=== PATIENT | female | born 1995 | race African-American/Black ===

== ENCOUNTER 2017-02-18 00:06 | Emergency (ER) | payer OTHER ==
[~2017-02-18] VITALS: Ht 157.5 cm; Wt 64.0 kg
[2017-02-18 00:07] VITALS: TEMP 36.8; Ht 157.5 cm; Wt 64.0 kg
[2017-02-18] MEDS ORDERED: TROLAMINE SALICYLATE 10% CRM 255 APPLN/85 GM TUBE EXT STA (00:29)
[2017-02-18 01:06] VITALS: BP 125/94; PULSE 90; O2SAT 99
--- NOTE | 2017-02-18 03:16 | EMERGENCY ROOM VISIT NOTE ---
History First contact with patient: 00:15 Chief Complaint: BACK PAIN Stated Complaint: CHRONIC BACK PAIN History of Present Illness The patient is a 21 year old female who presents to the Emergency Room with complaints of mid upper back pain for the past few days has a history of interim back pain throughout the years. She describes the pain as aching, ranging in severity 5 out of 10 worse with movement and better with rest. It does not radiate. She's never seen a back specialist. She states she's had x- rays and CTs in her back before which were all unremarkable. Patient states her backpack is quite heavy. Patient denies fall, trauma, chest pain, dyspnea, abdominal pain, low back pain, radiating pain, numbness, tingling, weakness. Patient denies IV drug abuse. No fever no chills. No sinus seizure. Review of Systems See HPI for pertinent positives & negatives. A total of 10 systems reviewed and were otherwise negative. Past Medical/Surgical History Back pain Social History Smoking Status: Former Smoker Alcohol Use: none Drug Use: none Marital Status: single Occupation Status: [employer] student Current/Historical Medications No Active Prescriptions or Reported Meds Physical Exam Vital Signs Date Time Temp Pulse Resp B/P (MAP) Pulse Ox O2 Delivery O2 Flow Rate FiO2 02/18/17 01:06 90 20 125/94 99 02/18/17 00:07 36.8 104 20 125/81 99 Room Air Physical Exam VITALS: Vitals are noted on the nurse's note and reviewed by myself. Vital signs stable. GENERAL: Pleasant female, in no acute distress, nondiaphoretic, well-developed well-nourished. SKIN: Capillary reflex less than 2 seconds. HEENT: Normocephalic. PERRLA. EOMI. Nares patent. Mucous membranes moist. Neck is supple without nuchal rigidity. HEART: Regular rate and rhythm without murmurs gallops or rubs. LUNGS: Clear to auscultation bilaterally without wheezes, rales or rhonchi. No retractions or accessory muscle use. ABDOMEN: Positive bowel sounds x 4. Normal tympanic percussion. Soft, nontender, without masses or organomegaly. Do sign negative. No guarding or rebound tenderness. MUSCULOSKELETAL: No gross musculoskeletal defects. No thoracic or lumbar tenderness on exam. Thoracic paraspinal muscles and latissimus dorsi muscles tender to palpation. NEURO: Patient was alert and oriented to person place and time. Normal sensation to light and sharp touch. No focal neurological deficits. Medical Decision & Procedures Medications Administered Medications (Trade) Dose Ordered Sig/Derick Route Start Time Stop Time Status Last Admin Dose Admin Trolamine Salicylate (Myoflex Cream) 1 appln NOW STAT EXT 02/18/17 00:29 02/18/17 00:32 DC 02/18/17 01:04 1 APPLN ED Course Prior records/ancillary studies reviewed. Triage Nursing notes reviewed. Additional history obtained from friend The patient's history was concerning for back pain. Differential diagnosis: Etiologies such as musculoskeletal, disc herniation, fracture, aortic disease, metastatic disease, cord compression, discitis, infection, renal colic, gastrointestinal, acute exacerbation of chronic back pain, sciatica, cauda equina, as well as others were entertained. Physical findings: As above. No focal neurologic findings noted. ER treatment provided: Myoflex cream On reassessment the patient felt better. Diagnostics interpreted by me: Deferred This appears to be consistent with thoracic strain. Patient was advised to try anti-inflammatories and stretch the area out. She is advised if symptoms persist to follow-up with orthopedic spine or here in the ER sooner for severe pain, numbness, tingling, inability to walk, worsening signs or symptoms or as needed. Patient was neurovascularly and neurologically intact. She is afebrile. No IV drug abuse. She was ambulated without difficulties. There was no trauma. The patient's physical examination and detailed history did not reveal any red flags for back pain such as those listed in the differential diagnosis. Therefore advanced diagnostics and consultations were felt to be unwarranted. By the evaluation outlined above emergent etiologies such as fracture, aortic disease, metastatic disease, infection, renal colic, gastrointestinal, cord compression, cauda equina, as well as others were deemed relatively unlikely. The pt informed about the findings as listed above. All questions were answered and pleased with the treatment. Return instructions were outlined and the patient was discharged in stable condition. Referral: The patient was referred back to orthopedic spine and/or primary care physician for follow-up in 2 to 3 days for a recheck of the current condition. Medical Decision As above [place] Drug Monitoring Program Search Results: patient reviewed within database, no issues identified Medication Reconcilliation Current Medication List: was personally reviewed by me Blood Pressure Screening Patient's blood pressure: Normal blood pressure Impression Primary Impression: Thoracic myofascial strain Departure Information Dispostion Home / Self-Care Condition GOOD Prescriptions No Active Prescriptions or Reported Meds Referrals No Doctor, Assigned [facility] (PCP) Forms HOME CARE DOCUMENTATION FORM, School Instructions, Return To School: 1 day IMPORTANT VISIT INFORMATION Patient Instructions Back Pain - [facility] Additional Instructions Myoflex cream: Apply 3 times a day a day to the affected area for muscle pain. Ibuprofen(Motrin, Advil) may be used for fever or pain. Use 600mg every six hours as needed. Take with food. Avoid using more than 2400mg in a 24 hour period. Do not use 2400mg per day for more than three consecutive days without physician direction. Prolonged inappropriate use can lead to stomach upset or ulcers. This medication can be taken if you need to drive, work, or perform activities which may be dangerous when taking narcotic pain medication. (AND/OR) Acetaminophen(Tylenol) may be used for fever or pain. Use 1000mg every six hours as needed. Avoid using more than 3000mg in a 24 hour period. This medication can be taken if you need to drive, work, or perform activities which may be dangerous when taking narcotic pain medication. Rest and avoid heavy lifting until your symptoms resolve and then gradually return to full activity. A good rule of thumb is if it hurts your back to perform a certain activity, then it should be avoided until you are healthy again. A heating pad, warm compresses, or a hot shower may help with tight muscles and can be done several times a day as needed. Continue current medications. Return to the ER immediately for any numbness, tingling, severe pain, loss of control of your bowels or bladder, inability to walk, or as needed. Follow up with your primary care physician/orthopedics spine within 3-5 days for a recheck of your current condition. School Instructions Return To School: 1 day Problem Qualifiers Primary Impression: Thoracic myofascial strain Encounter type: initial encounter Qualified Codes: S29.019A - Strain of muscle and tendon of unspecified wall of thorax, initial encounter
== END 2017-02-18 01:07 | disposition home or self-care (01) ==
LOC: C.EDB 00:07
DX: S29.019A Strain of muscle and tendon of unspecified wall of thorax, initial encounter (principal); X58.XXXA Exposure to other specified factors, initial encounter; Z87.891 Personal history of nicotine dependence

== ENCOUNTER 2017-07-28 17:51 | Emergency (ER) | payer OTHER ==
[~2017-07-28] VITALS: Ht 157.5 cm; Wt 66.0 kg
[2017-07-28 18:03] VITALS: TEMP 36.7; Ht 157.5 cm; Wt 66.0 kg
[2017-07-28] MEDS ORDERED: ALUMINUM/MAGNESIUM SUSP 30 ML UDC PO STA (19:41)
[2017-07-28] MEDS ORDERED: ACETAMINOPHEN 500 MG TAB PO STA (19:41)
[2017-07-28 19:46] VITALS: O2SAT 97
--- NOTE | 2017-07-28 19:50 | EMERGENCY ROOM VISIT NOTE ---
History Report prepared by Mc: Ami Fisher Under the Supervision of: Dr. Greg Gaston D.O. First contact with patient: 19:37 Chief Complaint: CHEST PAIN Stated Complaint: CHEST PAINS,SOB Nursing Triage Summary: patient to Ed via triage for ongoing chest pain, states "its been on and off for two weeks, this morning it was really bad and I get short of breath with it." History of Present Illness The patient is a 21 year old female who presents to the Emergency Room with complaints of intermittent chest pain that began two mornings ago. She describes the pain as though her chest is caving inwards. She notes the discomfort is more right sided. She notes the pain is worsened when she stands up straight. She reports the pain was worse this morning, though states the pain is tolerable while here in the ED. She notes shortness of breath. She denies any cough. She took Ibuprofen, though no relief. She notes abdominal pain. Her LNMP was last week. She denies any chance of . She denies any pain or swelling in the legs. She reports chronic back pain. She denies any abdominal surgeries. She does report taking control. She denies any family history of blood clots. Source of History: patient Onset: two mornings ago Position: chest Quality: other (feels like chest is caving inwards) Timing: intermittent Associated Symptoms: + SOB, + abdominal pain, + back pain, No cough Note: She denies any pain or swelling in the legs. Review of Systems See HPI for pertinent positives & negatives. A total of 10 systems reviewed and were otherwise negative. Past Medical & Surgical Medical Problems: (1) Thoracic myofascial strain Family History No pertinent family history Social History Smoking Status: Never Smoker Alcohol Use: none Drug Use: none Marital Status: single Housing Status: lives with roommate Occupation Status: [employer] student Current/Historical Medications Scheduled Multivitamin (Multivitamin), 1 TAB PO DAILY Miscellaneous Medications Biotin (Biotin) Allergies Coded Allergies: No Known Allergies (Unverified , 07/28/17) Physical Exam Vital Signs Date Time Temp Pulse Resp B/P (MAP) Pulse Ox O2 Delivery O2 Flow Rate FiO2 07/28/17 22:24 96 122/67 98 07/28/17 21:30 81 122/67 98 Room Air 07/28/17 20:10 87 07/28/17 19:46 81 20 112/82 97 Room Air 07/28/17 19:46 97 Room Air 07/28/17 18:04 98 Room Air 07/28/17 18:03 36.7 100 20 123/78 97 Room Air Physical Exam GENERAL: Patient is awake, alert, and in no acute distress. Patient is resting comfortably and showing no signs of anxiety EYES: The conjunctivae are clear. The pupils are round and reactive. EARS, NOSE, MOUTH AND THROAT: The nose is without any evidence of any deformity. Mucous membranes are moist tongue is midline NECK: The neck is nontender and supple. RESPIRATORY: Normal respiratory effort is noted there is no evidence of wheezing rhonchi or rales CARDIOVASCULAR: Regular rate and rhythm noted there no murmurs rubs or gallops normal S1 normal S2 GASTROINTESTINAL: The abdomen is soft, nondistended. RUQ tenderness to palpation. No guarding or rigidity. PELVIS: The Pelvis is stable. No tenderness to palpation is noted. BACK: No midline tenderness or or step-off noted range of motion in flexion extension as well as rotation no signs of muscle spasm noted MUSCULOSKELETAL/EXTREMITIES: There is no evidence of gross deformity full range of motion is noted in the hips and shoulders SKIN: There is no obvious evidence of any rash. There are no petechiae, pallor or cyanosis noted. NEUROLOGIC: Patient is awake alert and oriented x3. Medical Decision & Procedures ER Provider Diagnostic Interpretation: Radiology results as stated below per my review and radiologist interpretation: CHEST ONE VIEW PORTABLE CLINICAL HISTORY: 21 years-old Female presenting with EVALUATE RESPIRATORY DISTRESS.DYSPNEA. TECHNIQUE: Portable upright AP view of the chest was obtained. COMPARISON: None. FINDINGS: Cardiomediastinal silhouette normal. Lungs and pleural spaces clear. Osseous structures normal. Upper abdomen normal. IMPRESSION: 1. No acute cardiopulmonary disease. Electronically signed by: Tho Coe M.D. 07/28/2017 8:39 PM Dictated Date/Time: 07/28/2017 8:39 PM GALLBLADDER-ABD LIMITED CLINICAL HISTORY: 21 years-old Female presenting with RUQ pain. TECHNIQUE: Real-time grayscale and limited color Doppler ultrasound imaging of the abdomen limited to the right upper quadrant was performed. COMPARISON: None. FINDINGS: Pancreas: Visualized portions of the pancreatic head and body normal. Liver: Normal echogenicity and echotexture. The liver measures 13.2 cm in maximal sagittal dimension. No sonographic evidence of hepatic mass. Main portal vein patent with normal directional flow. Biliary: No intrahepatic biliary ductal dilatation. Common bile duct measures up to 2 mm in diameter. Gallbladder: No evidence of gallstones, gallbladder wall thickening, gallbladder distention, or pericholecystic fluid or inflammatory change. Right kidney: Normal in appearance. No hydronephrosis. Ascites: None. Other: None. IMPRESSION: No cholelithiasis or biliary ductal dilatation. Electronically signed by: Tho Coe M.D. 07/28/2017 8:49 PM Dictated Date/Time: 07/28/2017 8:48 PM Laboratory Results 07/28/17 20:00 Red Blood Count 4.76, Mean Corpuscular Volume 93.3, Mean Corpuscular Hemoglobin 30.3, Mean Corpuscular Hemoglobin Concent 32.4, Mean Platelet Volume 9.7, Neutrophils (%) (Auto) 65.2, Lymphocytes (%) (Auto) 25.9, Monocytes (%) (Auto) 7.4, Eosinophils (%) (Auto) 1.0, Basophils (%) (Auto) 0.3, Neutrophils # (Auto) 7.81, Lymphocytes # (Auto) 3.10, Monocytes # (Auto) 0.89, Eosinophils # (Auto) 0.12, Basophils # (Auto) 0.03 07/28/17 20:00 Test 07/28/17 20:00 07/28/17 20:13 White Blood Count 11.97 K/uL (4.8-10.8) Red Blood Count 4.76 M/uL (4.2-5.4) Hemoglobin 14.4 g/dL (12.0-16.0) Hematocrit 44.4 % (37-47) Mean Corpuscular Volume 93.3 fL (80-100) Mean Corpuscular Hemoglobin 30.3 pg (25-34) Mean Corpuscular Hemoglobin Concent 32.4 g/dl (32-36) Platelet Count 381 K/uL (130-400) Mean Platelet Volume 9.7 fL (7.4-10.4) Neutrophils (%) (Auto) 65.2 % Lymphocytes (%) (Auto) 25.9 % Monocytes (%) (Auto) 7.4 % Eosinophils (%) (Auto) 1.0 % Basophils (%) (Auto) 0.3 % Neutrophils # (Auto) 7.81 K/uL (1.4-6.5) Lymphocytes # (Auto) 3.10 K/uL (1.2-3.4) Monocytes # (Auto) 0.89 K/uL (0.11-0.59) Eosinophils # (Auto) 0.12 K/uL (0-0.5) Basophils # (Auto) 0.03 K/uL (0-0.2) RDW Standard Deviation 47.9 fL (36.4-46.3) RDW Coefficient of Variation 14.1 % (11.5-14.5) Immature Granulocyte % (Auto) 0.2 % Immature Granulocyte # (Auto) 0.02 K/uL (0.00-0.02) Prothrombin Time 11.4 SECONDS (9.0-12.0) Prothromb Time International Ratio 1.1 (0.9-1.1) Activated Partial Thromboplast Time 25.9 SECONDS (21.0-31.0) Partial Thromboplastin Ratio 1.0 Urine Color YELLOW Urine Appearance CLOUDY (CLEAR) Urine pH 7.0 (4.5-7.5) Urine Specific [place] 1.026 (1.000-1.030) Urine Protein NEG (NEG) Urine Glucose (UA) NEG (NEG) Urine Ketones TRACE (NEG) Urine Occult Blood NEG (NEG) Urine Nitrite NEG (NEG) Urine Bilirubin NEG (NEG) Urine Urobilinogen NEG (NEG) Urine Leukocyte Esterase NEG (NEG) Urine WBC (Auto) 1-5 /hpf (0-5) Urine RBC (Auto) 0-4 /hpf (0-4) Urine Hyaline Casts (Auto) 1-5 /lpf (0-5) Urine Epithelial Cells (Auto) >30 /lpf (0-5) Urine Bacteria (Auto) NEG (NEG) Anion Gap 4.0 mmol/L (3-11) Est Creatinine Clear Calc Drug Dose 92.2 ml/min Estimated GFR () 111.9 Estimated GFR (Non- 96.6 BUN/Creatinine Ratio 11.7 (10-20) Calcium Level 8.7 mg/dl (8.5-10.1) Total Bilirubin 0.5 mg/dl (0.2-1) Aspartate Amino Transf (AST/SGOT) 22 U/L (15-37) Alanine Aminotransferase (ALT/SGPT) 17 U/L (12-78) Alkaline Phosphatase 60 U/L (45-117) Troponin I < 0.015 ng/ml (0-0.045) Total Protein 7.3 gm/dl (6.4-8.2) Albumin 3.7 gm/dl (3.4-5.0) Globulin 3.6 gm/dl (2.5-4.0) Albumin/Globulin Ratio 1.0 (0.9-2) Lipase 120 U/L (73-393) Human Chorionic Gonadotropin, Qual NEG (NEG) Bedside D-Dimer 89 ng/mlFEU (0-450) Laboratory results per my review. Medications Administered Medications (Trade) Dose Ordered Sig/Derick Route Start Time Stop Time Status Last Admin Dose Admin Acetaminophen (Tylenol Tab) 1,000 mg ONE STAT PO 07/28/17 19:41 07/28/17 19:42 DC 07/28/17 19:52 1,000 MG Al Hydroxide/Mg Hydroxide (Maalox Susp) 30 ml NOW STAT PO 07/28/17 19:41 07/28/17 19:42 DC 07/28/17 19:52 30 ML ECG Per My Interpretation Indication: chest pain Rate (beats per minute): 76 Rhythm: normal sinus Findings: no acute ischemic change, no ectopy ED Course 1939: The patient was evaluated in room C8. A complete history and physical examination were performed. 1940: Ordered Maalox 30 ml PO and Tylenol 1,000 mg PO 2134: I reassessed the patient at this time. She is feeling better and resting comfortably. I discussed the results and treatment plan with the patient. I answered all pertaining questions that she had. She expressed understanding and verbalized agreement. The patient will be discharged home. Medical Decision Prior records/ancillary studies reviewed. Triage Nursing notes reviewed. The patient's history was concerning for chest pain. Differential diagnosis: Etiologies such as cardiac ischemia, aortic dissection, pulmonary embolism, pneumonia, pneumothorax, musculoskeletal, infections, pericarditis, myocarditis , esophageal rupture, gastrointestinal, as well as others were entertained. The patient is a 21-year-old female who presented to the emergency department for an evaluation of ongoing chest discomfort. The patient was not tachycardic. The patient was not hypoxic. Her d-dimer is negative. Her EKG did not reveal any acute ischemic changes. I discussed patient's laboratory and radiographic studies with her. I also discussed the limitations of the emergency department workup for chest pain with her. She was encouraged to rest and avoid any strenuous activity. She was also encouraged to call her primary care physician in the morning to schedule a follow-up appointment. Otherwise she was encouraged to return the emergency department immediately if symptoms change worsen or the need arises. Medication Reconcilliation Current Medication List: was personally reviewed by me Blood Pressure Screening Patient's blood pressure: Normal blood pressure Impression Primary Impression: Right-sided chest pain Scribe Attestation The scribe's documentation has been prepared under my direction and personally reviewed by me in its entirety. I confirm that the note above accurately reflects all work, treatment, procedures, and medical decision making performed by me. Departure Information Dispostion Home / Self-Care Referrals [facility] (PCP) Forms HOME CARE DOCUMENTATION FORM, IMPORTANT VISIT INFORMATION, School Instructions, Work Instructions Patient Instructions ED Chest Pain Atypical Unkn Cause, My [facility] Additional Instructions Follow-up with [facility] for reevaluation. Continue to use Motrin and Tylenol for pain. Consider using Maalox or Mylanta as directed for symptomatic relief. Consider using [id number] stomach medication such as Zantac or Prilosec. Return to the emergency department immediately symptoms change worsen or the need arises.
[2017-07-28 20:22] LABS: BASO % 0.3 %; BASO ABS # 0.03 K/uL (0-0.2); EOS ABS # 0.12 K/uL (0-0.5); HEMATOCRIT 44.4 % (37-47); HEMOGLOBIN 14.4 g/dL (12.0-16.0); IG# 0.02 K/uL (0.00-0.02); LYMPH % 25.9 %; MEAN CELL VOLUME 93.3 fL (80-100); MEAN CORPUSCULAR HEMOGLOBIN 30.3 pg (25-34); MEAN CORPUSCULAR HGB CONC 32.4 g/dl (32-36); MEAN PLATELET VOLUME 9.7 fL (7.4-10.4); MONO % 7.4 %; MONO ABS # 0.89 K/uL (0.11-0.59); NEUT % 65.2 %; NEUT ABS # 7.81 K/uL (1.4-6.5); PLATELET COUNT 381 K/uL (130-400); RED CELL DISTRIBUTION WIDTH CV 14.1 % (11.5-14.5); RED CELL DISTRIBUTION WIDTH SD 47.9 fL (36.4-46.3); WHITE BLOOD COUNT 11.97 K/uL (4.8-10.8)
[2017-07-28 20:32] LABS: INR 1.1 (0.9-1.1); PTT PATIENT 25.9 SECONDS (21.0-31.0)
[2017-07-28 20:41] LABS: ALBUMIN 3.7 gm/dl (3.4-5.0); ALT/SGPT 17 U/L (12-78); BLOOD UREA NITROGEN 10 mg/dl (7-18); CALCIUM 8.7 mg/dl (8.5-10.1); CARBON DIOXIDE 27 mmol/L (21-32); CREATININE 0.86 mg/dl (0.60-1.20); GLUCOSE 80 mg/dl (70-99); POTASSIUM 4.1 mmol/L (3.5-5.1); SODIUM 138 mmol/L (136-145)
--- NOTE | 2017-07-28 20:41 | DIAGNOSTIC IMAGING REPORT ---
CHEST ONE VIEW PORTABLE CLINICAL HISTORY: 21 years-old Female presenting with EVALUATE RESPIRATORY DISTRESS.DYSPNEA. TECHNIQUE: Portable upright AP view of the chest was obtained. COMPARISON: None. FINDINGS: Cardiomediastinal silhouette normal. Lungs and pleural spaces clear. Osseous structures normal. Upper abdomen normal. IMPRESSION: 1. No acute cardiopulmonary disease. Electronically signed by: Tho Coe M.D. 07/28/2017 8:39 PM Dictated Date/Time: 07/28/2017 8:39 PM
[2017-07-28 20:46] LABS: ALKALINE PHOSPHATASE 60 U/L (45-117); AST/SGOT 22 U/L (15-37); TOTAL PROTEIN 7.3 gm/dl (6.4-8.2)
--- NOTE | 2017-07-28 20:50 | DIAGNOSTIC IMAGING REPORT ---
GALLBLADDER-ABD LIMITED CLINICAL HISTORY: 21 years-old Female presenting with RUQ pain. TECHNIQUE: Real-time grayscale and limited color Doppler ultrasound imaging of the abdomen limited to the right upper quadrant was performed. COMPARISON: None. FINDINGS: Pancreas: Visualized portions of the pancreatic head and body normal. Liver: Normal echogenicity and echotexture. The liver measures 13.2 cm in maximal sagittal dimension. No sonographic evidence of hepatic mass. Main portal vein patent with normal directional flow. Biliary: No intrahepatic biliary ductal dilatation. Common bile duct measures up to 2 mm in diameter. Gallbladder: No evidence of gallstones, gallbladder wall thickening, gallbladder distention, or pericholecystic fluid or inflammatory change. Right kidney: Normal in appearance. No hydronephrosis. Ascites: None. Other: None. IMPRESSION: No cholelithiasis or biliary ductal dilatation. Electronically signed by: Tho Coe M.D. 07/28/2017 8:49 PM Dictated Date/Time: 07/28/2017 8:48 PM
[2017-07-28] MEDS ORDERED: MULT-506 PO (21:15)
[2017-07-28] MEDS ORDERED: BIOT1CAP8 (21:15)
[2017-07-28 22:24] VITALS: BP 122/67; PULSE 96; O2SAT 98
== END 2017-07-28 22:30 | disposition home or self-care (01) ==
LOC: C.EDB 17:53 → C.EDC 22:30
DX: R07.9 Chest pain, unspecified (principal); R06.02 Shortness of breath

== ENCOUNTER 2017-08-28 03:43 | Emergency (ER) | payer OTHER ==
[~2017-08-28] VITALS: Ht 157.5 cm; Wt 68.2 kg
[~2017-08-28 03:43] MED LIST: BIOT1CAP8; MULT-506 PO
[2017-08-28 03:46] VITALS: TEMP 36.7; Ht 157.5 cm; Wt 68.2 kg
--- NOTE | 2017-08-28 04:12 | EMERGENCY ROOM VISIT NOTE ---
History Report prepared by Mc: Ami Fisher Under the Supervision of: Francesco ByersO. First contact with patient: 03:52 Chief Complaint: URINARY SYMPTOMS Stated Complaint: BLOODY URINE,ABDOMINAL PAIN,PAIN WHEN URINATING Nursing Triage Summary: Pt states " I think that I have a UTI. I have burning, frequency, pain and blood in my urine. It started 2 hours ago." History of Present Illness The patient is a 21 year old female who presents to the Emergency Room with complaints of persistent general hematuria for two hours. She reports mild abdominal pain. She has a history of UTIs and her last one was three years ago. She reports burning with urination, frequency with urination, and blood present in urine. She denies any underlying medical problems. She denies any diarrhea or leg cramping. Her LNMP was August 11, 2017. She states that she wears contacts. Source of History: patient Onset: two hours Position: other (general ) Quality: other (hematuria) Timing: other (persistent) Associated Symptoms: + abdominal pain, + urinary symptoms (burning, increased frequency, and blood present), No diarrhea Note: Denies any leg cramping. Review of Systems See HPI for pertinent positives & negatives. A total of 10 systems reviewed and were otherwise negative. Past Medical & Surgical Medical Problems: (1) Thoracic myofascial strain Family History Diabetes mellitus Heart disease Hypertension Social History Smoking Status: Never Smoker Alcohol Use: occasionally (2/week) Drug Use: none Marital Status: single Housing Status: lives with roommate Occupation Status: [employer] student Current/Historical Medications Scheduled Multivitamin (Multivitamin), 1 TAB PO DAILY Nitrofurantoin Monohyd Macro (Macrobid), 100 MG PO BID Phenazopyridine Hcl (Pyridium), 1 TAB PO TID Miscellaneous Medications Biotin (Biotin) Allergies Coded Allergies: No Known Allergies (Unverified , 07/28/17) Physical Exam Vital Signs Date Time Temp Pulse Resp B/P (MAP) Pulse Ox O2 Delivery O2 Flow Rate FiO2 08/28/17 04:24 73 20 110/62 99 Room Air 08/28/17 03:46 36.7 78 16 121/67 98 Room Air Physical Exam HEENT: Head - normocephalic and atraumatic Pupils are equal, round, and reactive to light. Extraocular eye muscles are intact, and sclera are anicteric. Nose - moist nasal mucosa without discharge. Mouth - moist buccal mucosa. Oropharynx is nonerythematous and there is no tonsillar exudate or edema noted. Neck: Supple; no JVD, nuchal rigidity, cervical lymphadenopathy. Heart: Regular rate and rhythm. There is a normal S1 and S2 with no murmurs, clicks, or gallops appreciated. Lungs: Clear to auscultation bilaterally with no wheezes, rales, or rhonchi. Abdomen: Soft, suprapubic abdominal pain with palpation, nondistended, with good bowel sounds. There are no palpable pulsatile masses or hepatosplenomegaly. There is no guarding, rigidity, or rebound noted. Extremities: No evidence of cyanosis, clubbing, or edema. There are easily palpable peripheral pulses. Skin: warm and dry with good turgor and no rashes. Medical Decision & Procedures Laboratory Results Test 08/28/17 03:55 Urine Color RED Urine Appearance SLIGHTLY CLOUDY (CLEAR) Urine pH (4.5-7.5) Urine Specific Kane 1.003 (1.000-1.030) Urine Protein POS (NEG) Urine Glucose (UA) (NEG) Urine Ketones (NEG) Urine Occult Blood (NEG) Urine Nitrite (NEG) Urine Bilirubin (NEG) Urine Urobilinogen (NEG) Urine Leukocyte Esterase (NEG) Urine RBC >30 /hpf (0-4) Urine WBC >30 /hpf (0-5) Urine Epithelial Cells 5-10 /lpf (0-5) Urine Bacteria 1+ (NEG) Laboratory results per my review. Medications Administered Medications (Trade) Dose Ordered Sig/Derick Route Start Time Stop Time Status Last Admin Dose Admin Nitrofurantoin Macrocrystals (Macrobid Cap) 100 mg ONE ONCE PO 08/28/17 04:15 08/28/17 04:16 DC 08/28/17 04:22 100 MG Phenazopyridine HCl (Pyridium Tab) 200 mg NOW STAT PO 08/28/17 04:14 08/28/17 04:15 DC 08/28/17 04:22 200 MG Procedure 0414: Ordered Pyridium 200 mg PO 0415: Ordered Macrobid 100 mg PO ED Course 0408: Past medical records reviewed. The patient was evaluated in room B12B. A complete history and physical exam was performed. A urine specimen was obtained. It was sent for UA and culture 0414: Ordered Pyridium 200 mg PO 0415: Ordered Macrobid 100 mg PO The patient was given a prescription for antibiotics and Pyridium to use at home. Medical Decision The patient is a 21 year old female who presents to the ED with urinary symptoms. Differential diagnosis includes cystitis, pyelonephritis, and ureteral colic. Lab results showed: Urine: positive protein, WBC >30, RBC >30, and 1+ bacteria. This is a 21-year-old female patient presents to the emergency department with a sudden onset of urinary frequency, dysuria and urgency. Urine dip reveals evidence of hemorrhagic cystitis. The patient will be treated with Macrobid. She was told return to the emergency department if symptoms worsen. Otherwise she can follow-up with the [facility] in [place] if symptoms persist. Medication Reconcilliation Current Medication List: was personally reviewed by me Blood Pressure Screening Patient's blood pressure: Normal blood pressure Impression Primary Impression: Hemorrhagic cystitis Scribe Attestation The scribe's documentation has been prepared under my direction and personally reviewed by me in its entirety. I confirm that the note above accurately reflects all work, treatment, procedures, and medical decision making performed by me. Departure Information Dispostion Home / Self-Care Prescriptions Nitrofurantoin Monohyd Macro (MACROBID) 100 Mg Cap 100 MG PO BID, #10 CAP Prov: Yohana Pulido D.O. 08/28/17 Phenazopyridine Hcl (PYRIDIUM) 200 Mg Tab 1 TAB PO TID for 2 Days, #6 TAB Prov: Yohana Pulido D.O. 08/28/17 Referrals No Doctor, Assigned (PCP) Forms HOME CARE DOCUMENTATION FORM, IMPORTANT VISIT INFORMATION Patient Instructions My [facility], UTI Additional Instructions Rest. Take plenty of clear liquids Use motrin for pain Pyridium - 1 tab. every 8 hours Macrobid - 1 tab. every 12 hours for 5 days
[2017-08-28] MEDS ORDERED: PHENAZOPYRIDINE HCL 200 MG TAB PO STA (04:14)
[2017-08-28] MEDS ORDERED: NITROFURANTOIN MONOHYDRATE 100 MG CAP PO ONE (04:15)
[2017-08-28] MEDS ORDERED: NITR1CAP16 PO (04:20)
[2017-08-28] MEDS ORDERED: PHEN-775 PO (04:20)
[2017-08-28 04:24] VITALS: BP 110/62; PULSE 73; O2SAT 99
== END 2017-08-28 04:30 | disposition home or self-care (01) ==
LOC: C.EDB 03:44
DX: N30.90 Cystitis, unspecified without hematuria (principal)